=== PATIENT | female | born 1995 | race Caucasian/White ===

== ENCOUNTER → 2016-12-21 | Outpatient (CLI) | payer BC ==
--- NOTE | 2016-12-21 15:30 | DI ---
US OB LESS THAN 14 WEEKS, US OB TRANSVAGINAL,12/21/2016 1:32 PM: Clinical History: Established gestational age. Previous Exam: None at this facility. Findings: Multiple transabdominal and endovaginal grayscale and color Doppler sonographic images are obtained t hrough the pelvis demonstrating a single live intrauterine gestation. The amniotic fluid is grossly n ormal. The placenta is grossly normal. A single pole is seen measuring 10 mm from crown-rump corresponding with an estimated gestation al age of 7 weeks one day. Detected Doppler heart tones measured 160 beats per minute. The right ovary measured 3.4 x 2.4 x 2.9 cm with normal Doppler flow. The left ovary measures 3.3 x 1.7 x 2.5 cm and containing a normal Doppler flow. There are a few maturing follicles identified. Impression: Single live intrauterine gestation with estimated gestational age of 7 weeks one day.
== END ==
LOC: US 13:26
PROVIDERS: ATTEND Family Medicine
DX: Z36 Encounter for antenatal screening of mother (principal)
CPT/HCPCS: 76801; 76817

== ENCOUNTER → 2016-12-21 | Outpatient (CLI) | payer BC ==
[2016-12-21 11:06] LABS: BILIRUBIN,URINE NEGATIVE (NEG); CLARITY,URINE CLEAR (CLEAR); GLUCOSE, URINE (UA) NEGATIVE (NEG); LEUKOCYTE ESTERASE ,URINE TRACE (NEG); NITRATE,URINE NEGATIVE (NEG); OCCULT BLOOD,URINE NEGATIVE (NEG); PROTEIN,URINE NEGATIVE (NEG); UROBILINOGEN,URINE 0.2 mg/dL (0.2)
[2016-12-21 11:11] LABS: URINE SAMPLE TYPE CLEAN CATCH URINE
[2016-12-21 11:12] LABS: BACTERIA,URINE FEW; SQUAMOUS EPITHELIAL CELL,UR FEW
== END ==
LOC: MOB LAB 09:00
PROVIDERS: ATTEND Family Medicine
DX: Z36 Encounter for antenatal screening of mother (principal); Z3A.01 Less than 8 weeks gestation of pregnancy
CPT/HCPCS: 81001; 87088

== ENCOUNTER → 2017-01-13 | Outpatient (CLI) | payer BC ==
[2017-01-13 12:55] LABS: BASOPHILS # (AUTO) 0.02 10*3/UL; BASOPHILS % (AUTO) 0.2 % (0-1); EOSINOPHILS % (AUTO) 1.1 % (0-8); HEMATOCRIT 36.5 % (37.0-47.0); IMM GRAN % (AUTO) 0.1 % (0-5); IMM GRAN# (AUTO) 0.01 10*3/UL; LYMPHOCYTES # (AUTO) 1.51 10*3/uL; LYMPHOCYTES % (AUTO) 18.7 % (10-50); MEAN CORPUSCULAR HGB CONC 32.9 g/dL (33-37); MEAN PLATELET VOLUME 11.8 FL (7.4-12.2); MONOCYTES # (AUTO) 0.66 10*3/UL (0.3-0.8); MONOCYTES % (AUTO) 8.2 % (5-15); NEUTROPHILS # (AUTO) 5.77 10*3/UL; NEUTROPHILS % (AUTO) 71.7 % (50-80); RDW COEFFICIENT OF VARIATION 14.1 % (11.5-14.5); WHITE BLOOD COUNT 8.06 10^3/uL (4.8-10.8)
[2017-01-13 13:27] LABS: PLATELET MORPHOLOGY COMMENT NORMAL MORPHOLOGY (NORM)
[2017-01-13 13:54] LABS: PRENATAL QUESTION YES (Y)
[2017-01-13 15:25] LABS: HIV ANTIBODY NEGATIVE (N); HIV-1 P24 ANTIGEN NEGATIVE (N)
[2017-01-14 11:00] LABS: RUBELLA IGG INDEX 1.2 (()); SYPHILIS IGG WITH REFLEX Negative (Negative)
[2017-01-14 13:19] LABS: HEP B SURFACE AG Negative (Negative)
== END ==
LOC: MOB LAB 10:56
PROVIDERS: ATTEND Family Medicine
DX: Z36 Encounter for antenatal screening of mother (principal); Z3A.10 10 weeks gestation of pregnancy
CPT/HCPCS: 36415; 80081; 86900; 86901

== ENCOUNTER 2017-01-15 15:04 | Emergency (ER) | payer BC ==
[2017-01-15 18:30] VITALS: RESP 16; TEMP 98.1
--- NOTE | 2017-01-16 00:36 | PDOC ---
Female Problem HPI - General Chief Complaint: Vag Complaint/Bleed, <20WK IUP Stated Complaint: 10 week /bleeding Date Seen by Provider: 01/15/17 Time Seen by Provider: 16:10 Source: POSITIVE: Patient Exam Limitations: POSITIVE: No limitations Nurse's Notes Reviewed & Considered: Yes - History of Present Illness Initial Comments: The patient is a 21-year-old female. Approximately 4 hours [employer] she was walking at her residence and noticed a "gush of blood"vaginally. Patient states she is 10 weeks . She had an ultrasound done 2 or 3 weeks ago which showed a normal-appearing 7 week intrauterine gestational . She is 1 para 1 aborta 0. She has no abdominal pain. She has O- blood type. No pain or other symptoms. Body Location Affected: REPORTS: Genitalia (Vaginal bleeding, 10 weeks ) Timing: REPORTS: Abrupt Duration: 4-6 hours Severity: Mild Quality: REPORTS: Other (No pain anywhere.) Context: REPORTS: Known Location of Pain: DENIES: Right, Left, Breast Pain, Abdominal Pain, Pelvic Pain , Pelvic Cramping, Pelvic Pressure, Burning, Sharp, Vulvar Pain, Vaginal Pain, Low Back Pain, Flank Pain, Shoulder Pain Vaginal Bleeding: REPORTS: Abnormal Bleeding (First trimester vaginal bleeding as above) : 1 Para: 0 Abortions (Spontaneous/Intentional): 0 : REPORTS: , Ultrasound Sexual History: REPORTS: Active Urinary Symptoms: DENIES: Blood in Urine, Frequent Urination, Discomfort w/ Urination, Burning w/ Urination, Urinary Urgency, Painful Urination, Other Discharge: REPORTS: Other (Vaginal bleeding) Similar Symptoms Previously: No Recent Care Received: REPORTS: Recently Seen (Ultrasound recently showed 7 week intrauterine ) Any Prior Injuries Related to Current Complaint?: No - Patient Home Medications Home Medications: Home Medications Pnv95/Ferrous Fumarate/FA [ Formula Tablet] 1 tab PO DAILY tab - Patient Allergies Allergies/Adverse Reactions: Allergies Allergy/AdvReac Type Severity Reaction Status Date / Time No Known Allergies Allergy Verified 01/15/17 15:14 Past Medical History - minerva [place] History: Denies History Cardiovascular History: Denies History Respiratory History: Denies History Gastrointestinal History: Denies History Genitourinary History: Denies History Endocrine History: Denies History Musculoskeletal History: Denies History Prosthesis or Implant: No Neurological History: Denies History Blood Disorders: Denies History Psychiatric History: Denies History Female Reproductive History: Denies History LMP: OCTOBER : 1 Para: 0 Cancer History: Denies History In Past Year Been Physically Harmed or Verbally Threatened: No History of MDRO: No Tobacco Use: Never Smoker Alcohol Use: None Substance Use Type: None Previous Surgical History: No Significant Family History: No pertinent family hx Past Medical History Reviewed: Reviewed - No Changes ROS - Limitations ROS Limitations: No Limitations Constitution: REPORTS: Denies Symptoms Cardiovascular: REPORTS: Denies Cardiac Symptoms Respiratory: REPORTS: Denies Resp Symptoms Neurological: REPORTS: Denies Neuro Symptoms Gastrointestinal: REPORTS: Denies GI Symptoms Endocrine: REPORTS: Denies Symptoms Musculoskeletal: REPORTS: Denies MS Symptoms Genitourinary: REPORTS: Other (First trimester vaginal bleeding) Eyes: REPORTS: Denies Symptoms ENT: REPORTS: Denies Symptoms Skin: REPORTS: Denies Skin Symptoms Lympathic: REPORTS: Denies Lympathic Symptoms Immunologic: POSITIVE: Denies Symptoms Psychiatric: POSITIVE: Denies Psych Symptoms Female Genitourinary Exam - General Appearance General Appearance: POSITIVE: Alert, Cooperative, No Acute Distress, No Evidence of Trauma - HEENT HEENT: POSITIVE: Head Inspection Nml, Eyes Inspection Nml, Ears Inspection Nml, Nose Inspection Nml, Oral/Dental Inspect. Nml, Pharynx Inspect. Nml, PERRL, EOMI - Neck Neck: POSITIVE: Normal Inspection, No Apparent Injury - Respiratory Respiratory: POSITIVE: No Respiratory Distress, Breath Sounds Normal, Chest Non- Tender - Cardiovascular Cardiovascular: POSITIVE: Regular Rate and Rhythm, Heart Sounds Normal, Equal Pulses, Strong Pulses Peripheral Pulses: Radial (R): 2+, Radial (L): 2+ - Abdomen Abdomen: POSITIVE: Soft, Normal Bowel Sounds, Non-Tender, No Distention, No Organomegaly - Back Back: POSITIVE: Normal Inspection - Genital / Rectal Pelvic Exam: POSITIVE: Cervix (Cervical os closed), Vagina (Normal except for some blood in vaginal vault, minimal), Uterus (Palpably normal), Adnexa ( Palpably normal), External Exam Normal, Bimanual Exam Normal, Vaginal Discharge (Blood as above), Vaginal Bleeding, Blood In Vaginal Vault, Enlarged Uterus ( Consistent with dates), Enlrgd Consistent w/Dates. NEGATIVE: Speculum Exam Normal (Some scant amount of blood in vaginal vault), Herpes-Like Ulcerations, Clots in vaginal Vault, Cervicitis, Tissue Present in Cervix, Tissue Present in Vagina, Cervical Motion Tender, Cervical Dilation, Adnexal Tenderness, Adnexal Mass, Tender Uterus, Perineal Hematoma - Skin Skin: POSITIVE: Intact, Normal For Race, Warm, Dry, No Rash - Extremities Extremity: Non-Tender: (All Extremities), Normal ROM: (All Extremities), Normal Inspection: (All Extremities) - Neurological / Psychological Neurological: POSITIVE: Oriented X3, butter melter Normal As Tested, Motor Normal, Sensation Normal, 5, 6 Female Genitourinary Progress - Results Reviewed by me Lab Results Reviewed: Yes (quantitative hCG 55,562) Lab Results:: Laboratory Results 01/15/17 Range/Units 16:45 HCG, Quant 42247 mIU/ML Blood Type O NEGATIVE Antibody Screen Negative - Patient's Progress Pain Medication Addressed: POSITIVE: Not Applicable School/Work Release Addressed: POSITIVE: Not Applicable Re-Examine Time: 18:10 Re-Examine Comment: Diagnosis of threatened miscarriage and need for follow-up discussed with patient. Status: POSITIVE: Unchanged, Re-Examined Rhogam Given: Yes - Consult Counseled: POSITIVE: Patient, RE: Lab Results, RE: DX, RE: Need for F/U Patient Care Time - Estimated PCT Patient Care Time (In Minutes): 50 Vital Signs - VS Reviewed Vital Signs Reviewed: Yes Discharge Clinical Impression: Threatened Discharge Disposition: Discharged to Home Condition: Fair Patient Instructions Given at Discharge: Threatened Miscarriage (ED) Additional Instructions: You are threatening to have a miscarriage, but you have not actually had one. Any bleeding in the first 3 months of of uncertain cause is termed a threatened miscarriage, which simply means that the likelihood if you having a miscarriage is somewhat higher than if you had not been bleeding. You received a Rhogam injection from the emergency room, since this is her first and your blood type is O-. We also camilla what is known as a beta hCG, or quantitative test, which gives us some idea of how viable is. This test fell within the normal range for you, however, you do need to follow-up with your OB doctor in approximately 2 days for reevaluation and to have this test repeated so that we can determine a trend. Return here anytime if condition worsens. Follow Up With: JUNAID BECERRA [Primary Care Provider] - (Follow-up with your OB doctor in 2 days. Return here if condition worsens.)
== END 2017-01-15 18:20 | disposition home or self-care (01) ==
LOC: ER 15:04
DX: O20.0 Threatened abortion (principal); Z3A.10 10 weeks gestation of pregnancy
CPT/HCPCS: 36415; 84702; 86850; 86900; 86901; 96372; 99283 ×2; J2790

== ENCOUNTER → 2017-01-18 | Outpatient (CLI) | payer BC ==
--- NOTE | 2017-01-18 11:22 | DI ---
LIMITED OBSTETRICAL ULTRASOUND, 01/18/2017 8:40 AM Clinical History: Threatened miscarriage. Previous Exam: 12/21/2016. ADJUSTED LMP: 10/31/2016. There is a single live IUP currently in unstable presentation. Amnionic fluid content is normal. Ther e is no subchorionic hemorrhage. Scans through the cervix show hypoechoic material within the cervica l canal probably representing blood. activity is observed as follows: cardiac and extremity. Th e placenta is anterior corpus and Grade 0. heart rate is 161 beats/minute and regular. There is a small cyst of the right ovary and this may represent the remnant of a corpus luteum cyst. The left ovary is normal. [place]-rump length measurement is 49 mm and this corresponds to an EGA of 11 weeks 5 days. BPD, HC, and AC measurements are 17 mm, 68 mm, and 52 mm, respectively. These measurements cor respond to EGA values of 12 weeks 4 days, 12 weeks 6 days, and 12 weeks 2 days, respectively. Composi te EGA based on these measurements is 12 weeks 3 days. The US EDC is 07/30/2017. Based on the crown-ru mp length measurement, the EDC would be 08/04/2017. EDC by adjusted LMP is 08/07/2017. Readin. There is a single live fetus with unstable presentation and normal amniotic fluid content. Placen ta is anterior corpus and grade 0. There is no evidence of a subchorionic hemorrhage or of an abrupti on or previa. There is fluid in the cervical canal, probably representing blood in view of the histor y of recent bleeding. 2. The composite EGA based on the crown-rump length measurement is 11 weeks 5 days with an ultrasoun d EDC of 08/04/2017. The EDC based on the measurements of the BPD, HC, and AC values give a composite EGA of 12 weeks 3 days with an ultrasound EDC of 07/30/2017. At this stage of , because of la ck of development of anatomic detail, the crown-rump length measurement still may be more precise.
== END ==
LOC: MOB LAB 08:33 → US 08:33
PROVIDERS: ATTEND Family Medicine
DX: O20.0 Threatened abortion (principal)
CPT/HCPCS: 36415; 76815; 84702

== ENCOUNTER → 2017-03-09 | Outpatient (CLI) | payer BC, OTHER ==
--- NOTE | 2017-03-09 11:47 | DI ---
OBSTETRICAL ULTRASOUND, 03/09/2017 8:02 AM: Clinical History: Antepartum screening. Previous Exam: 01/18/2017. ADJUSTED DATE FROM EARLY OBUS: 10/31/2016. There is a single live IUP currently in unstable presentation. Amnionic fluid content is normal. Feta l activity is observed as follows: cardiac, extremity, and respiratory. The placenta is anterior alpesh us and Grade 1. heart rate is 138 beats/minute and regular. There is a 3 vessel cord. The RVOT, LVOT and 4 chamber heart view are normal. The aortic arch and descending aorta are normal. Views of the spine, face, and kidneys are unremarkable. BPD, HC, AC, and FL measurements are 44 mm, 167 mm, 140 mm, and 29 mm, respectively. These measurements correspond to EGA values of 19 weeks 3 days, 19 weeks 3 days, 19 weeks 3 days and 19 weeks 0 days, respectively. Composite EGA is 19 weeks 3 days. The US EDC is 07/30/2017. EDC by adjusted LMP is 08/08/2017. Readin. Single live fetus with unstable presentation and normal amniotic fluid content. Placenta is anter ior corpus and grade 1. 2. The composite EGA is 19 weeks 3 days with an ultrasound EDC of 07/30/2017. Based on the adjusted L MP of 10/31/2016, the EDC would be 08/08/2017. 3. Antepartum screening examination is normal.
== END ==
LOC: US 08:00
PROVIDERS: ATTEND Family Medicine
DX: Z36 Encounter for antenatal screening of mother (principal); Z3A.13 13 weeks gestation of pregnancy
CPT/HCPCS: 76805

== ENCOUNTER → 2017-05-19 | Outpatient (CLI) | payer OTHER, BC ==
[2017-05-19 09:15] LABS: HEMATOCRIT 35.5 % (37.0-47.0); HEMOGLOBIN 11.7 g/dL (12.0-16.0); MEAN CORPUSCULAR HEMOGLOBIN 30.5 PG (27-31); MEAN CORPUSCULAR VOLUME 92.4 FL (81-99); MEAN PLATELET VOLUME 11.3 FL (7.4-12.2); RED BLOOD COUNT 3.84 10^6/uL (4.20-5.40)
== END ==
LOC: LAB 08:57
PROVIDERS: ATTEND Family Medicine
DX: Z36 Encounter for antenatal screening of mother (principal); O36.0130 Maternal care for anti-D [Rh] antibodies, third trimester, not applicable or unspecified; Z3A.28 28 weeks gestation of pregnancy
CPT/HCPCS: 36415; 82950; 84443; 85027; 86850; 86900; 86901; J2790

== ENCOUNTER 2017-07-24 09:23 | Inpatient (IN) ==
[2017-07-24] MEDS ORDERED: NALOXONE 0.4 MG/1 ML VIAL IVP PRN (09:57)
[2017-07-24] MEDS ORDERED: NORMAL SALINE 10 ML SYRINGE FLUSH IVP PRN ×2 (09:57→15:08)
[2017-07-24] MEDS ORDERED: diphenhydrAMINE 50 MG/1 ML VIAL IVP PRN ×2 (09:57→15:08)
[2017-07-24] MEDS ORDERED: OXYTOCIN 10 UNIT/1 ML IM PRN (09:57)
[2017-07-24] MEDS ORDERED: Metoclopramide Inj 10 MG/2 ML VIAL IV PRN (09:57)
[2017-07-24] MEDS ORDERED: Lidocaine 1% 10 MG/ML - 20 ML VIAL SUBCUT PRN (09:57)
[2017-07-24] MEDS ORDERED: BUTORPHANOL TARTRATE 2 MG/1 ML VIAL IVP PRN (09:57)
[2017-07-24] MEDS ORDERED: ePHEDrine Inj 5 MG in Normal Saline Flush 1 ML IVP PRN (09:57)
[2017-07-24] MEDS ORDERED: METHYLERGONOVINE MALEATE 0.2 MG/1 ML VIAL IM PRN (09:57)
[2017-07-24] MEDS ORDERED: Phenylephrine Inj 50 MCG in Normal Saline Flush 0.5 ML IVP PRN (09:57)
[2017-07-24] MEDS ORDERED: LIDOCAINE W/ SODIUM BICARB 0.5 ML SYR SUBD PRN (09:57)
[2017-07-24] MEDS ORDERED: Famotidine Inj 20 MG in Normal Saline Flush 10 ML IVP PRN ×4 (09:57)
[2017-07-24] MEDS ORDERED: CALCIUM CARBONATE 500 MG (TUMS) CHEWABLE TABLET PO PRN ×2 (09:57→15:08)
[2017-07-24] MEDS ORDERED: CefOXitin Inj 2 GM in Sodium Chloride 0.9% 100 ML IV PRN (09:57)
[2017-07-24] MEDS ORDERED: MISOPROSTOL 200 MCG TABLET RECTAL PRN (09:57)
[2017-07-24] MEDS ORDERED: CITRIC ACID/SODIUM CITRATE 30 ML CUP PO PRN (09:57)
[2017-07-24] MEDS ORDERED: Nalbuphine Inj 20 MG/ML Ampule IVP PRN ×2 (09:57→15:08)
[2017-07-24] MEDS ORDERED: Carboprost Inj 250 MCG/ML AMP IM PRN (09:57)
[2017-07-24] MEDS ORDERED: TERBUTALINE SULFATE 1 MG/1 ML SDV SUBCUT PRN (09:57)
[2017-07-24] MEDS ORDERED: Naloxone Inj 0.01 MG in Normal Saline Flush 1 ML IVP PRN (09:57)
[2017-07-24] MEDS ORDERED: ONDANSETRON 4 MG/2 ML VIAL IVP PRN ×2 (09:57→15:08)
[2017-07-24] MEDS ORDERED: Oxytocin 20 Units + LR 20 UNIT/1,000 ML BAG IV SCH ×2 (10:00→15:08)
[2017-07-24] MEDS: Lactated Ringers-OB Dept 1,000 ML PRIMARY IV SCH ×2 (10:40→12:18)
[2017-07-24 10:41] LABS: Hematocrit [HCT] 37.1 % (37.0-47.0); Hemoglobin [HGB] 12.5 g/dL (12.0-16.0); MEAN CORPUSCULAR HEMOGLOBIN 30.8 PG (27-31); MEAN CORPUSCULAR HGB CONC 33.7 g/dL (33-37); MEAN CORPUSCULAR VOLUME 91.4 FL (81-99); MEAN PLATELET VOLUME 13.6 FL (7.4-12.2); RED BLOOD COUNT 4.06 10^6/uL (4.20-5.40)
[2017-07-24] MEDS: fentaNYL Inj 100 MCG/2 ML VIAL IV PRN ×2 (10:48→14:15)
[2017-07-24] MEDS ORDERED: LIDOCAINE MPF 2% - 5 ML (20 MG/1 ML) ONE (11:57)
[2017-07-24] MEDS ORDERED: fentaNYL 2 MCG/BUPIVACAINE 0.0625%/NS 0.9% 250 ML BAG EPIDURAL ONE ×2 (12:17)
[2017-07-24] MEDS ORDERED: Fent/Bupiv 2mcg/0.0625% Epid 250 ML ONE (12:17)
--- NOTE | 2017-07-24 12:39 | CRNA.PROCE ---
Central Neuraxis Block Placemt - - Type of Block: Epidural Reason for Block: Analgesia Moniters Used During Block: SPO2, NIBP Positioning: Sitting Skin Prep Used: Betadine (Times 3) Draped: Yes Skin Infiltration - Enter Amount Used in Comment Field: 1% Xylocaine (mL): Yes ( 1.5 ml) Spinal Needle Used: 18 Hustead 80 mm (ALEXIS with Saline.) Number of Centimeters Catheter Threaded: 3.5 Bioclusive Dressing Applied: Yes (Skin prep under all adhesive.) Anesthesia Time - Other Weight: 77.111 kg Height: 5 ft 8 in Body Mass Index (BMI): 25.8
[2017-07-24] MEDS ORDERED: fentaNYL 2 MCG/BUPIVACAINE 0.0625%/NS 0.9% 250 ML BAG EPIDURAL SCH (12:45)
--- NOTE | 2017-07-24 14:20 | CRNA.PROGR ---
Anesthesia Time - - Start date: 07/24/17 End date: 07/24/17 - Procedure/Recovery Time Anesthesia : Time In: 12:01 Anesthesia : Time Out: 14:15 Anesthesia : Total Time: 134 - Total Anesthesia Time Total Anesthesia Time (minutes): 134 - Other Weight: 77.111 kg Height: 5 ft 8 in Body Mass Index (BMI): 25.8 Physical Status: P2 () Obstetrics: Planned vaginal delivery w/ neuraxial labor anesthesia/analog
--- NOTE | 2017-07-24 14:51 | OB.DEL.SUM ---
Delivery Note Delivery Summary: Ms. Mora is a 21 yo G1 now P1 at 37 6/7 weeks by early /s who presented to labor and delivery this morning with painful, regular contractions. She was 5/80 /0 on admission. An epidural was placed about 2 hours after admission for pain control. She progressed on her own to c/c/+1. She underwent amniotomy at that time, with clear fluid. Approximately 10 minutes later, the pt had the urge to push. She pushed for approximately 10 minutes to the delivery of a viable male , in the straight OA presentation, over an intact perineum. His nose and mouth were suctioned with the bulb suction and he was dried and stimulated. He had an immediate lusty cry. He was placed on mom's chest. The cord was clamped by myself approximately 35-40 seconds after delivery, and cut by the father of the baby. Cord blood and cord gases were obtained for analysis. Time of delivery was 1401. The placenta delivered spontaneously and intact at 1409. There was a 3 vessel cord. The vagina and perineum were examined and bilateral first degree labial lacerations were noted and repaired in the normal fashion with 3-0 vicryl rapide suture. EBL 200 cc. Baby weighed 7#0.9 oz and was 20.75 inches long. Both mom and baby tolerated delivery well and are in stable condition at this time.
[2017-07-24] MEDS ORDERED: HYDROcodone-APAP 5 MG -325 MG TABLET PO PRN (15:08)
[2017-07-24] MEDS ORDERED: ACETAMINOPHEN 325 MG TABLET PO PRN (15:08)
[2017-07-24] MEDS ORDERED: GLYCERIN/WITCH HAZEL 1 BOX TOPICAL PRN (15:08)
[2017-07-24] MEDS ORDERED: BENZOCAINE/MENTHOL SPRAY 56 GM BOTTLE TOPICAL PRN (15:08)
[2017-07-24] MEDS ORDERED: diphenhydrAMINE 25 MG CAPSULE PO PRN (15:08)
[2017-07-24] MEDS ORDERED: LANOLIN HPA 40 GM TUBE TOPICAL PRN (15:08)
[2017-07-24] MEDS ORDERED: Ondansetron ODT Tab 4 MG TAB PO PRN (15:08)
[2017-07-24] MEDS ORDERED: DIPH,PERTUSS,TET(ADACEL) VAC/PF 0.5 ML (Tdap) IM ONE (15:08)
[2017-07-24] MEDS ORDERED: IBUPROFEN 800 MG TABLET PO PRN (15:08)
[2017-07-24] MEDS: DOCUSATE 100 MG CAPSULE PO SCH (21:12)
[2017-07-25 05:14] LABS: Hematocrit [HCT] 31.9 % (37.0-47.0); Hemoglobin [HGB] 10.6 g/dL (12.0-16.0); MEAN CORPUSCULAR HEMOGLOBIN 30.7 PG (27-31); MEAN CORPUSCULAR HGB CONC 33.2 g/dL (33-37); MEAN CORPUSCULAR VOLUME 92.5 FL (81-99); MEAN PLATELET VOLUME 13.5 FL (7.4-12.2); RED BLOOD COUNT 3.45 10^6/uL (4.20-5.40)
[2017-07-25] MEDS: DOCUSATE 100 MG CAPSULE PO SCH (08:39)
--- NOTE | 2017-07-25 08:55 | OB.PROGRES ---
Subjective Post Op Day: 1 Pain Management: PO [place] Catheter: No Flatus: Yes Diet: Regular Feeding Method: Exculsively Ambulating: Yes Concerns / Additional Information: Lochia is moderate, decreasing overnoc. The nurse called last noc stating that when the pt ambulated to the nursery last noc, she appeared to be in a little bit of distress. Upon further questioning, the pt was complaining of shortness of breath, especially with ambulation. She is completely fine when she is sitting or lying down. Denies any associated chest pain, no calf pain or tenderness. Her family history is significant in that her grandfather and grandmother both had blood clots. Her immediate family members, including parents and siblings have not had any clots. Objective General: lying in bed, in NAD. Appears quite comfortable. CardioVascular: RRR With no m/r/g. Respiratory: CTAB, no wheezing or crackles. Bowel Sounds: Present Extremities: Negative Donaldo's - Bilaterally Assesstment / Plan (1) Status post vaginal delivery Current Visit: Yes Status: Acute Assessment / Plan: -will order CXR and venous u/s of legs to r/o acute pulmonary issues and DVT given her shortness of breath. D-dimer wouldn't be so helpful in this situation given her immediate post- status. -breast feeding going well. -rh negative--baby is B-, so will not need rhogam. -rubella immune. -pt requesting d/c home, will see how feeding goes today.
[2017-07-25] MEDS ORDERED: Prenatal Multivitamin Tab 1 TAB TAB PO SCH (09:00)
--- NOTE | 2017-07-25 11:43 | DI ---
US Up/Low Extremity Veins B/L,07/25/2017 8:47 AM: Clinical History: Lower extremity swelling and shortness of breath . Previous Exam: None at this facility. Findings: Multiple grayscale and color Doppler sonographic images are obtained of the deep veins of both lower extremities, and demonstrate complete coaptation upon graded compression throughout. There is no evidence of echogenic thrombus. There is normal respiratory variation and augmentation. Impression: No evidence of deep venous thrombosis.
--- NOTE | 2017-07-25 11:59 | CRNA.PROGR ---
Anesthesia Note - Progress Notes Anesthesia Progress Note: Post labor epidural on 07/24/17. Sitting in bed . Denies headache and or backache.
[2017-07-25 12:54] VITALS: BP 117/68; RESP 19; TEMP 97.8
--- NOTE | 2017-07-25 21:50 | DI ---
XR CXR 2VW PA/LAT,07/25/2017 8:48 AM: Clinical History: Shortness of breath Previous Exam: None at this facility. Findings: PA and lateral views of the chest are obtained, and demonstrate clear lungs. The cardiomediastinum an d bony thorax are unremarkable. Impression: Normal chest.
== END 2017-07-25 16:15 | disposition home or self-care (01) | DRG 774 ==
LOC: OBOP 09:23 → OBIP 10:04
PROVIDERS: ADMIT Family Medicine; ATTEND Family Medicine